=== PATIENT | female | born 2000 ===

== ENCOUNTER 2024-10-14 08:26 | Emergency (ER) | payer OTHER ==
[~2024-10-14] VITALS: Ht 154.9 cm; Wt 65.5 kg
[2024-10-14] MEDS ORDERED: HYDROCODONE/ACETA 5/325 TAB PO ONE (08:45)
[2024-10-14] MEDS ORDERED: IBUPROFEN 600 MG TAB PO ONE (08:45)
[2024-10-14 09:25] VITALS: BP 108/80
== END 2024-10-14 09:31 | disposition home or self-care (01) ==
LOC: ED 08:26
DX: O03.9 Complete or unspecified spontaneous abortion without complication (principal)
CPT/HCPCS: 99284; A9270